=== PATIENT | female | born 1965 | race Caucasian/White ===

== ENCOUNTER → 2018-10-24 | Outpatient (CLI) | payer OTHER, SELFPAY ==
[2018-10-24 09:09] VITALS: BMI 21.4
[2018-10-24 17:26] LABS: HIV - WCH Non-Reactive (Nonreactive)
[2018-10-24 18:06] LABS: Chlamydia Trachomatis by PCR Negative (Negative); Neisserai gonorrhoeae by PCR Negative (Negative); Probe Check PASS; Sample Adequacy Control PASS; Specimen Processing Control PASS
[2018-10-26 01:35] LABS: Rapid Plasmin Reagin (RPR) NONREACTIVE (NONREACTIVE)
[2018-10-27 03:06] LABS: HCV Quant. RNA PCR HCV Not Detected IU/mL (.)
[2018-10-27 08:44] LABS: HSV 1 IgG < 0.91 index (0.00-0.90)
[2018-10-27 08:46] LABS: HPV APTIMA, High Risk Negative (Negative)
== END | disposition home or self-care (01) ==
LOC: LABSPEC 14:34 → LAB 14:35
PROVIDERS: Family Provider Internal Medicine; PCP Internal Medicine; Referring Provider Nurse Practitioner Women's Health; Visit Provider Nurse Practitioner Women's Health
DX: Z11.3 Encounter for screening for infections with a predominantly sexual mode of transmission (principal); Z12.4 Encounter for screening for malignant neoplasm of cervix
CPT/HCPCS: 36415; 86592; 86695; 86696; 86703; 87491; 87522; 87591; 87624; 88175; G0145

== ENCOUNTER → 2018-11-07 09:28 | Outpatient (CLI) | payer OTHER, SELFPAY ==
[2018-10-24 09:09] VITALS: BMI 21.4
--- NOTE | 2018-11-07 09:44 | EKG12_ITS ---
Test Reason : PRE-OP Blood Pressure : / mmHG Vent. Rate : 066 BPM Atrial Rate : 066 BPM P-R Int : 124 ms QRS Dur : 078 ms QT Int : 384 ms P-R-T Axes : 041 075 073 degrees QTc Int : 402 ms Normal sinus rhythm Normal ECG Confirmed by RADHA WILD ([id number]), food expeditor CATHY KLINE ([id number]) on 11/12/2018 3:08:37 PM Referred By: Keon Angeles Confirmed By:RADHA WILD
[2018-11-07 09:45] LABS: Hematocrit 43.6 % (37-47); Hemoglobin 14.3 g/dl (12.0-15.0); Mean Corp Hgb Conc 32.8 g/gl (32-36); Mean Corpuscular Hgb 29.8 pg (27.0-32.0); Mean Corpuscular Volume 90.8 fL (81-99); Platelet Count 225 K/mm3 (150-450); RBC Distribution Width CV 12.9 % (11.6-14.6); RBC Distribution Width SD 42.2 fl (35.1-43.9); White Blood Count 5.5 K/mm3 (4.4-11.0)
[2018-11-07 09:46] LABS: Scan Indicated on CBC? Y/N NO
[2018-11-07 10:05] LABS: Anion Gap 5 (5-15); BUN 16 mg/dL (7-18); BUN/Creat Ratio 16.5 RATIO (10-20); Calcium,Total 10.4 mg/dL (8.5-10.1); Chloride 111 mmol/L (98-107); Creatinine, Serum 0.97 mg/dL (0.55-1.02); EST Glomerular Filtration Rate 64 mL/min (>60); Est Glom Filt Rate - Afr Amer 77 mL/min (>60); Glucose 83 mg/dL (74-106); Potassium 4.1 mmol/L (3.5-5.1); Sodium Level 144 mmol/L (136-145)
== END ==
PROVIDERS: Family Provider Internal Medicine; PCP Internal Medicine; Referring Provider Physician Assistant; Visit Provider Physician Assistant
DX: Z01.818 Encounter for other preprocedural examination (principal); Z01.810 Encounter for preprocedural cardiovascular examination
CPT/HCPCS: 36415; 80048; 85027; 93005

== ENCOUNTER → 2018-11-13 13:54 | Outpatient (CLI) | payer OTHER, SELFPAY ==
[2018-10-24 09:09] VITALS: BMI 21.4
--- NOTE | 2018-11-13 13:56 | BI_ITS ---
MAMMOGRAPHY - BILATERAL SCREENING REASON FOR EXAM: Female, 53 years old. Routine annual screening examination. PERTINENT HISTORY: Aunt with breast cancer. TECHNIQUE: Digital bilateral breast su (3D mammographic acquisition) in the CC and MLO projections. 2-D mediolateral oblique (MLO) and craniocaudad (CC) views of both breasts were obtained. CAD: Full Field Digital Mammography with Computer Added Detection was performed. COMPARISON: Comparison is made with prior outside examination dated July 18, 2016. FINDINGS: Breast Composition: The breasts are extremely dense, which lowers the sensitivity of mammography. There are no dominant masses or suspicious calcifications. Stable small right axillary lymph nodes. No other significant abnormalities are identified. There has been no significant change since the prior study. BI/SCREEN MAMM (CAD) W/SU BILAT IMPRESSION: Stable bilateral screening mammogram. Yearly follow-up mammogram recommended. (A) ASSESSMENT CATEGORY: BIRADS Category 2: Benign. A letter regarding these results will be sent to the patient by the facility within 30 days. Approximately 10% of breast cancers are not detected by mammography. A normal mammogram should not delay biopsy of a clinically suspicious abnormality. [id number] Electronically Signed: Kota Montgomery, at 14:49 EDT , Service support ,
== END ==
PROVIDERS: Family Provider Internal Medicine; PCP Internal Medicine; Referring Provider Nurse Practitioner Women's Health; Visit Provider Nurse Practitioner Women's Health
DX: Z12.31 Encounter for screening mammogram for malignant neoplasm of breast (principal); Z80.3 Family history of malignant neoplasm of breast
CPT/HCPCS: 77063; 77067

== ENCOUNTER → 2019-03-22 10:30 | Outpatient (CLI) | payer OTHER, SELFPAY ==
[2018-10-24 09:09] VITALS: BMI 21.4
[2019-03-22 13:05] LABS: Absolute Lymphocyte Count 2.09 X10^3/uL (0.83-4.51); Absolute Neutrophil Count 4.4 X10^3/uL (2.0-7.7); Basophil# 0.06 X10^3/uL; Basophil% 0.8 % (0-1); Eosinophil# 0.08 X10^3/uL; Eosinophils% 1.1 % (0-5); Hematocrit 45.8 % (37-47); Hemoglobin 14.6 g/dL (12.0-15.0); Lymphocyte # 2.09 X10^3/ul (4.0); Lymphocyte % 29.4 % (19-41); Mean Corp Hgb Conc 31.9 g/dL (32-36); Monocyte# 0.45 X10^3/uL; Monocyte% 6.3 % (0-10); NRBC Flagged by Analyzer 0 % (0-5); Neutrophil # 4.41 X10^3/uL (2.7-7.7); Neutrophil % 62.3 % (47-70); Platelet Count 215 K/mm3 (150-450); RBC Distribution Width SD 41.7 fl (35.1-43.9); Red Blood Count 4.87 M/mm3 (4.2-5.4); White Blood Count 7.1 K/mm3 (4.4-11.0)
[2019-03-22 13:27] LABS: ALB/GLOB Ratio 1.1 RATIO (0.9-2.4); AST(SGOT) 21 U/L (15-37); Alanine Aminotransfer ALT/SGPT 27 U/L (13-56); Albumin, Serum 4.1 g/dL (3.2-5.0); Alkaline Phosphatase 160 U/L (45-117); Anion Gap 7 (5-15); BUN 20 mg/dL (7-18); BUN/Creat Ratio 22.3 RATIO (10-20); Calcium,Total 10.7 mg/dL (8.5-10.1); Chloride 108 mmol/L (98-107); EST Glomerular Filtration Rate 69 mL/min (>60); Est Glom Filt Rate - Afr Amer 84 mL/min (>60); Globulin 3.9 g/dL (2.2-4.2); Glucose 67 mg/dL (74-106); Potassium 4.2 mmol/L (3.5-5.1); Sodium Level 143 mmol/L (136-145)
[2019-03-22 14:09] LABS: Hepatitis C Antibody Non-Reactive (Nonreactive)
== END ==
PROVIDERS: Family Provider Internal Medicine; PCP Internal Medicine; Visit Provider Family Medicine Geriatric Medicine
DX: R53.83 Other fatigue (principal); Z13.89 Encounter for screening for other disorder
CPT/HCPCS: 36415; 80053; 84443; 85025; 86803

== ENCOUNTER → 2019-04-01 08:56 | Outpatient (CLI) | payer OTHER, SELFPAY ==
[2018-10-24 09:09] VITALS: BMI 21.4
--- NOTE | 2019-04-01 08:58 | US_ITS ---
STUDY: ABDOMINAL ULTRASOUND - RIGHT UPPER QUADRANT REASON FOR VISIT: Female, 53 years old. Abnormal labs TECHNIQUE: Ultrasound evaluation of the right upper quadrant was performed with real-time and static phillips-scale imaging. TECHNICAL QUALITY: Adequate. COMPARISON: None. FINDINGS: Liver: The liver measures 13 cm. There is normal echogenicity of the liver. The bile ducts are within normal limits. There is hepatic color flow. The direction of portal flow is hepatopetal. There is no demonstrated mass lesion. Gallbladder: Normal distended gallbladder. The gallbladder wall measures 2 mm. There is a negative sonographic Martin's sign. There is no pericholecystic fluid. There are no gallstones. Common Bile Duct (C.B.D.): The common bile duct measures 3 mm. Pancreas: Normal size of the head, body and tail of the pancreas. There is normal echogenicity of the pancreas. There is no demonstrated pancreatic mass or cyst. Right Kidney: Normal size of the right kidney. The right kidney measures 9 cm. Normal renal cortex. There is no demonstrated renal mass or cyst. There is no right hydronephrosis. US/Abdomen Limited IMPRESSION: Normal right upper quadrant ultrasound examination. Electronically Signed: Samuel Royal, at 17:55 EDT Tel , Service support ,
== END ==
PROVIDERS: Family Provider Family Medicine Geriatric Medicine; PCP Family Medicine Geriatric Medicine; Referring Provider Family Medicine Geriatric Medicine; Visit Provider Family Medicine Geriatric Medicine
DX: R74.8 Abnormal levels of other serum enzymes (principal)
CPT/HCPCS: 76705

== ENCOUNTER → 2019-04-30 16:55 | Outpatient (CLI) | payer OTHER, SELFPAY ==
[2019-04-30 16:04] VITALS: BMI 19.3
[2019-04-30 17:57] LABS: Anion Gap 8 (5-15); BUN 20 mg/dL (7-18); Calcium,Total 10.7 mg/dL (8.5-10.1); Chloride 106 mmol/L (98-107); Creatinine, Serum 0.95 mg/dL (0.55-1.02); EST Glomerular Filtration Rate 65 mL/min (>60); Est Glom Filt Rate - Afr Amer 78 mL/min (>60); Glucose 93 mg/dL (74-106); Potassium 4.1 mmol/L (3.5-5.1); Sodium Level 141 mmol/L (136-145)
[2019-04-30 17:58] LABS: Vitamin D,25 Hydroxy 29.4 ng/mL (29.95-100.01)
== END ==
PROVIDERS: Family Provider Internal Medicine; PCP Internal Medicine; Referring Provider Internal Medicine Endocrinology, Diabetes & Metabolism; Visit Provider Internal Medicine Endocrinology, Diabetes & Metabolism
DX: E83.52 Hypercalcemia (principal); E55.9 Vitamin D deficiency, unspecified
CPT/HCPCS: 36415; 80048; 82306

== ENCOUNTER → 2019-05-01 16:23 | Outpatient (CLI) | payer OTHER, SELFPAY ==
[2019-04-30 16:04] VITALS: BMI 19.3
== END ==
PROVIDERS: Family Provider Internal Medicine; PCP Internal Medicine; Referring Provider Internal Medicine Endocrinology, Diabetes & Metabolism; Visit Provider Internal Medicine Endocrinology, Diabetes & Metabolism
DX: E83.52 Hypercalcemia (principal)

== ENCOUNTER → 2019-05-09 13:28 | Outpatient (CLI) | payer OTHER, SELFPAY ==
[2019-05-03 09:32] VITALS: BMI 19.3
--- NOTE | 2019-05-09 13:32 | BD_ITS ---
STUDY: DUAL ENERGY X-RAY ABSORPTIOMETRY / DXA REASON FOR EXAM: Female, 53 years old. The patient is postmenopausal. No loss of height. TECHNIQUE: Bone Mineral Density (BMD) measurements of lumbar spine and bilateral hips were obtained. COMPARISON: None. FINDINGS: Lumbar Spine (L1-L4): g/cm2 (0.913) / T-score (-2.2) / Z-score (-1.4) Findings are suggestive of osteopenia with a high fracture risk. Left Femur Total: g/cm2 (0.736) / T-score (-2.2) / Z-score (-1.5) Left Femoral Neck: g/cm2 (0.773) / T-score (-1.9) / Z-score (-0.9) Right Femur Total: g/cm2 (0.649) / T-score (-2.8) / Z-score (-2.2) Right Femoral Neck: g/cm2 (0.692) / T-score (-2.5) / Z-score (-1.5) BD/Dexa Bone Density Study IMPRESSION: The patient is considered osteopenic as outlined below according to World [employer]z Organization (WHO) criteria with a high fracture risk. Reference Information: The T-score is the number of standard deviations above or below the standard which is normal for young adults at their peak bone mineral density. The World Health Organization (WHO) interprets the T-scores as follows: Above -1 Normal bone density Between -1 and -2.5 Osteopenia Equal to / or below -2.5 Osteoporosis As a practical clinical guideline, osteopenia may be graded as follows: Mild -1 through -1.5 Moderate -1.6 through -2.0 Severe -2.1 through -2.4 The Z-score is the number of standard deviations above or below age-matched controls. A Z-score of less than -1.5 would be considered abnormal. References: 1. NIH Osteoporosis and Related Bone Diseases http://www.osteo.org 2. International Society for Clinical Densitometry http://www.iscd.org 3. National Osteoporosis Foundation http://www.nof.org Electronically Signed: Kota Montgomery, at 15:50 EST , Service support ,
== END ==
PROVIDERS: Family Provider Internal Medicine; PCP Internal Medicine; Referring Provider Internal Medicine Endocrinology, Diabetes & Metabolism; Visit Provider Internal Medicine Endocrinology, Diabetes & Metabolism
DX: E21.0 Primary hyperparathyroidism (principal); Z78.0 Asymptomatic menopausal state
CPT/HCPCS: 77080

== ENCOUNTER → 2019-05-21 10:27 | Outpatient (CLI) | payer OTHER, SELFPAY ==
[2019-05-03 09:32] VITALS: BMI 19.3
--- NOTE | 2019-05-21 10:27 | NM_ITS ---
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 WHOLE BODY 99m Tc MDP RADIONUCLIDE BONE SCINTIGRAPHY COMPARISON: None available FINDINGS: Following the intravenous administration of 26.0 mCi of 99m Tc MDP, whole body bone images reveal: 1. Increased radiopharmaceutical concentration is identified in the right proximal humeral metaphysis-humeral head. 2. Enhanced tracer distribution is visualized in the acromioclavicular compartments of both shoulders, sternoclavicular compartment of the right shoulder, bilateral knees, right-left ankles, midfoot and forefoot bilaterally. 3. The remaining skeletal structures are scintigraphically unremarkable with normal-appearing renal images and urinary bladder activity identified. NM/Bone Scan Whole Body IMPRESSION: 1. The increase in radiopharmaceutical concentration identified in the right proximal humeral metaphysis-humeral head may represent previous trauma-fracture. Plain film radiography correlation is recommended. 2. Degenerative arthritis appears each breast in the bilateral shoulders, right and left knees, both ankle articulations, right-left mid and forefoot. 3. There is no definitive typical scintigraphic evidence of diffuse axial skeletal metastatic disease on the current examination. Electronically Signed: James Magdaleno DO at 11:24 EST Tel , Service support ,
== END ==
PROVIDERS: Family Provider Internal Medicine; PCP Internal Medicine; Referring Provider Internal Medicine Endocrinology, Diabetes & Metabolism; Visit Provider Internal Medicine Endocrinology, Diabetes & Metabolism
DX: E83.52 Hypercalcemia (principal)
CPT/HCPCS: 78306

== ENCOUNTER → 2019-06-03 09:05 | Outpatient (CLI) | payer OTHER, SELFPAY ==
[2019-05-03 09:32] VITALS: BMI 19.3
[2019-06-03 09:58] LABS: (24 HR) Urine Calcium 301.6 mg/24 HR (42.0-353.0); 24HR UR TOTAL VOLUME 1850 ml; Calcium Urine pH Range 2
[2019-06-03 10:07] LABS: Urine Calcium (Random) 16.3 (Not Estab.)
[2019-06-03 10:51] LABS: Calcium,Total 10.8 mg/dL (8.5-10.1)
[2019-06-03 11:28] LABS: PTHIN 124.2 pg/mL (18.4-80.1)
[2019-06-03 11:29] LABS: Vitamin D,25 Hydroxy 36.7 ng/mL (29.95-100.01)
== END ==
PROVIDERS: Family Provider Internal Medicine; PCP Internal Medicine; Referring Provider Internal Medicine Endocrinology, Diabetes & Metabolism; Visit Provider Internal Medicine Endocrinology, Diabetes & Metabolism
DX: E83.52 Hypercalcemia (principal)
CPT/HCPCS: 36415; 81050; 82306; 82310; 82340; 83970

== ENCOUNTER → 2020-03-23 17:49 | Outpatient (CLI) | payer OTHER, SELFPAY ==
[2019-05-03 09:32] VITALS: BMI 19.3
== END ==
PROVIDERS: PCP Internal Medicine
DX: R50.9 Fever, unspecified (principal); R53.83 Other fatigue
CPT/HCPCS: 87635; C9803; U0003

== ENCOUNTER 2022-03-20 09:13 | Emergency (ER) | payer OTHER, SELFPAY ==
[2022-03-20 09:14] VITALS: BP 136/68; BP 161/81; PULSE 71; RESP 16; RESP 18; TEMP 36.6; O2SAT 100; BMI 19.7
--- NOTE | 2022-03-20 09:28 | CT_ITS ---
STUDY: CT BRAIN WITHOUT CONTRAST REASON FOR EXAM: Female, 56 years old. Syncope, headache RADIATION DOSAGE (If Supplied By Facility): CTDIvol = ( 44.99 ) mGy, DLP = ( 812.98 ) mGycm TECHNIQUE: Transaxial CT imaging of the brain was performed without administration of intravenous contrast material. Individualized dose optimization techniques were used for this CT. COMPARISON: No relevant priors. FINDINGS: Normal soft tissue structures. Normal calvarium. Normal size ventricles and extra-axial spaces for the patient''s age. Normal white matter tracts of the cerebral hemispheres. Normal basal ganglia and thalami. Normal brainstem. Normal cerebellum. There is no intracranial hemorrhage. There are no findings of an acute ischemic infarction. Normal visualized paranasal sinuses. CT/Brain/Head without Contrast IMPRESSION: Normal unenhanced CT scan of the brain. Electronically Signed: Duarte Fernandez MD at 10:04 EDT ,
--- NOTE | 2022-03-20 09:28 | EKG12_ITS ---
Test Reason : SYNCOPE Blood Pressure : / mmHG Vent. Rate : 059 BPM Atrial Rate : 059 BPM P-R Int : 148 ms QRS Dur : 076 ms QT Int : 428 ms P-R-T Axes : 069 076 074 degrees QTc Int : 423 ms Sinus bradycardia Otherwise normal ECG Confirmed by ELSA HUNT, EUGENIA ([id number]), editorial director ALBER VALADEZ ([id number]) on 03/22/2022 1:00:05 PM Referred By: PEEWEE Confirmed By:EUGENIA HUNTER MD
--- NOTE | 2022-03-20 09:28 | EDS_ITS ---
HPI History of Present Illness Chief Complaint: Syncope Detail of Chief Complaint: Syncope Informant: patient and spouse/S.O. Narrative Narrative: Patient presents the emergency department with a syncopal episode that occurred this morning around 8:40 AM. Patient states she was standing in the kitchen and her significant other started to cast the left side of her neck and she felt a tingly sensation in the left side of her neck and then apparently she started to fall to the floor and her held onto her T-shirt and lowered her to the floor but she did slump and then strike her head on the tile floor. She was unresponsive for a few seconds and then she started coming to. He denies any seizure-like activity. Patient complains of a little bit of a headache where she bumped her head on the floor. She is never had this happen before. She denies recent illness. She denies chest pain or shortness of breath. Prior similar symptoms: No PFSH PFSH Medical History (Updated 03/20/22 @ 10:[address] Surinder Astudillo, ) Anxiety Elevated alkaline phosphatase level Elevated liver enzymes Fatigue H/O urinary tract infection Hypercalcemia Hyperglyceridemia Hypoglycemia Rash Vertigo Vitamin D deficiency Home Medications cyclosporine 0.05 % eye drops in a dropperette (Restasis) 1 drp ophthalmic (eye) Q12H 10/24/18 [History Last Taken Unknown] polypodium leucotomos extract 240 mg capsule (Heliocare) mg PO 10/24/18 [History Last Taken Unknown] calcium carbonate 500 mg calcium (1,250 mg) tablet (Calcium 500) 500 mg PO DAILY 12/18/20 [History Last Taken Unknown] cholecalciferol (vitamin D3) 50 mcg (2,000 unit) capsule 50 mcg PO DAILY 12/18/20 [History Last Taken Unknown] Allergy/AdvReac Type Severity Reaction Status Date / Time amoxicillin Allergy Hives Verified 03/20/22 09:16 sulfamethoxazole Allergy Rash Verified 03/20/22 09:16 [From Bactrim] trimethoprim [From Bactrim] Allergy Rash Verified 03/20/22 09:16 Family History Mother CVA (cerebral vascular accident) Alzheimer's dementia Grandmother Leukemia Surgical History (Updated 03/20/22 @ 09:33 by Yolie Katz) H/O oral surgery H/O parathyroidectomy Status post Mohs surgery for squamous cell carcinoma in situ of skin Social History Smoking Status: Never smoker alcohol intake: current alcohol intake frequency: a few times a month substance use type: does not use what type of physical activity do you participate in: walking seatbelt use: always do you feel safe at home: Yes additional social history: ml SERRATO ROS ED ROS Narrative Syncope Review of Systems ROS Unobtainable: other Constitutional Constitutional ED: Reports lethargy; Denies chills, fever(s), sweats or weight loss Eyes Eyes: Denies blurry vision, change in vision or diplopia ENT ENT ED: Denies rhinorrhea or sore throat Cardiovascular Cardiovascular: Denies chest pain, orthopnea or racing heartbeat Respiratory/Chest Respiratory/Chest: Reports dyspnea and dyspnea on exertion; Denies cough, orthopnea or sputum Gastrointestinal Gastrointestinal: Denies abdominal pain, diarrhea, nausea or vomiting Genitourinary Genitourinary ED: Denies dysuria, hematuria or urinary frequency Musculoskeletal Musculoskeletal: Denies arthralgias, back pain, myalgias or neck pain Integumentary Denies abscess, Abrasions or rash Neurologic Neurologic: Reports headache(s); Denies weakness Psychiatric Psychiatric: Denies anxiety, depression or suicidal thoughts Endocrine Endocrinology: Denies polydipsia, polyphagia or polyuria Hematologic/Lymphatic Hematologic/Lymphatic: Denies easy bleeding, easy bruising or lymphadenopathy Allergic/Immunologic Allergic/Immunologic ED: Denies mouth swelling, tongue swelling or urticaria EXAM Physical Exam Const Vital Signs: 03/20/22 09:14 03/20/22 09:14 03/20/22 09:31 Temperature 97.9 F Temperature Source Temporal Pulse Rate 71 71 Pulse Rate [Lying] Pulse Rate [Sitting (for 1 minute prior to obtaining)] Pulse Rate [Standing (for 1 minute prior to obtaining)] Respiratory Rate 16 18 Respiratory Effort Normal Non-Labored Respiratory Pattern Normal Blood Pressure 136/68 H 161/81 H Blood Pressure [Lying] Blood Pressure [Sitting (for 1 minute prior to obtaining)] Blood Pressure [Standing (for 1 minute prior to obtaining)] Blood Pressure Mean 90 107 Blood Pressure Mean [Lying] Blood Pressure Mean [Sitting (for 1 minute prior to obtaining)] Blood Pressure Mean [Standing (for 1 minute prior to obtaining)] Pulse Ox 100 100 Oxygen Delivery Method Room Air Room Air 03/20/22 09:35 Temperature Temperature Source Pulse Rate Pulse Rate [Lying] 60 Pulse Rate [Sitting (for 1 minute prior to obtaining)] 65 Pulse Rate [Standing (for 1 minute prior to obtaining)] 75 Respiratory Rate Respiratory Effort Respiratory Pattern Blood Pressure Blood Pressure [Lying] 135/80 H Blood Pressure [Sitting (for 1 minute prior to obtaining)] 131/71 H Blood Pressure [Standing (for 1 minute prior to obtaining)] 111/78 Blood Pressure Mean Blood Pressure Mean [Lying] 98 Blood Pressure Mean [Sitting (for 1 minute prior to obtaining)] 91 Blood Pressure Mean [Standing (for 1 minute prior to obtaining)] 89 Pulse Ox Oxygen Delivery Method Positive well nourished and well developed General Appearance ED: well developed and NAD HEENT Reports TM's clear and moist mucous membranes HEENT Narrative: Patient has small hematoma right posterior occiput but is slightly tender to palpation. No bony step-offs noted. normocephalic and trauma; Negative for atraumatic or tenderness Tympanic Membrane ED: Yes TM's clear Eyes PERRL and EOMs intact bilaterally General Eye ED: Negative for pale conjunctiva or scleral icterus Neck no lymphadenopathy, supple and no JVD General: Negative for tenderness Chest Wall inspection of chest normal and palpation of chest normal Chest: Negative for tenderness Resp normal respiratory effort and clear to auscultation bilaterally Effort and Inspection: Negative for respiratory distress or pain with movement Auscultation: Negative for rhonchi, wheezes or diminished lung sounds Cardio regular rate, regular rhythm, S1 normal heart sound, S2 normal heart sound and no murmurs Peripheral Pulses: pulses 2+ throughout GI normal to inspection, nondistended, normoactive bowel sounds, soft to palpation, non-tender, non-distended and no masses Back/Spine no CVA tenderness and no thoracic nor lumbar tenderness Extremity normal to inspection General Extremety ED: Negative for edema General Extremity: Negative for edema Neuro oriented x3, CN's II-XII intact bilaterally, no sensory deficits noted and gait normal Sensorium / Orientation: awake, alert, oriented to person, oriented to place and oriented to time Motor Exam: strength 5/5 throughout and strength abnormal Psych mental status grossly normal Skin no rashes or lesions noted and no wounds MDM MDM MDM Narrative Medical decision making narrative: IV established on arrival. Patient placed on a monitor and storage bin tender. EKG obtained showed a sinus rhythm with a rate of 59 bpm with no acute ST segment changes. Chemistries and lab work otherwise unremarkable. Troponin was less than 3. Orthostatic vital signs performed were negative. At this point patient is asymptomatic and feels well. Suspect likely patient had a vasovagal type syncope. Patient advised to follow-up with primary care physician within next 5 to 7 days. She is to return if frequent or persistent syncope, chest pain, tachycardia or palpitations, or condition worsen anyway. Lab Data Attestation: I reviewed the patient's lab results. Labs: Laboratory Results - last 24 hr 03/20/22 03/20/22 09:28 09:28 WBC 5.5 RBC 4.66 Hgb 14.1 Hct 42.7 MCV 91.6 MCH 30.3 MCHC 33.0 RDW Std Deviation 41.5 RDW Coeff of Sammie 12.4 Plt Count 213 MPV 10.8 Immature Gran % (Auto) 0.200 Neut % (Auto) 49.8 Lymph % (Auto) 40.5 [place] % (Auto) 7.7 Eos % (Auto) 1.3 Baso % (Auto) 0.5 Absolute Neuts (auto) 2.7 Absolute Lymphs (auto) 2.22 Nucleated RBC % 0 Sodium 144 Potassium 4.0 Chloride 108 H Carbon Dioxide 28.0 Anion Gap 8 BUN 17 Creatinine 0.90 Estim Creat Clear Calc 59.52 Est GFR (MDRD) Af Amer 82 Est GFR (MDRD) Non-Af 68 BUN/Creatinine Ratio 18.8 Glucose 90 Calcium 9.9 Troponin I High Sens < 3 L Radiography Diagnostic Testing: Clinical Impression(s) from Imaging Studies Brain CT 03/20/22 09:28 IMPRESSION: Normal unenhanced CT scan of the brain. Electronically Signed: Duarte Fernandez MD at 10:04 EDT , EKG Initial EKG: Attestation: I personally reviewed and interpreted this EKG as follows: Comments: Sinus rhythm with a ventricular rate of 59 bpm with no acute ST segment changes Discharge Plan Triage Chief Complaint: Syncope ED Provider: Surinder Astudillo Dx/Rx/DC Orders Clinical Impression: Syncope Instructions: ED Fainting, Vagal Reaction, ED Fainting, Uncertain Cause Prescriptions: No Action Restasis 0.05 % dropperette 1 drp OPHTHALMIC Q12H polypodium leucotomos extract 240 mg capsule 240 mg capsule PO calcium carbonate [Calcium 500] 500 mg calcium (1,250 mg) tablet 500 mg PO DAILY cholecalciferol (vitamin D3) 50 mcg (2,000 unit) capsule 50 mcg PO DAILY Primary Care Provider: Raquel Coley Referrals: Raquel Coley DO [Primary Care Provider] - 5-7 Days Disposition Disposition: Home, Self Care
[2022-03-20 09:35] VITALS: BP 111/78; BP 131/71; BP 135/80; PULSE 60; PULSE 65; PULSE 75
[2022-03-20 09:42] LABS: Absolute Lymphocyte Count 2.22 X10^3/uL (0.83-4.51); Absolute Neutrophil Count 2.7 X10^3/uL (2.0-7.7); Basophil# 0.03 X10^3/uL; Basophil% 0.5 % (0-1); Eosinophil# 0.07 X10^3/uL; Eosinophils% 1.3 % (0-5); Hematocrit 42.7 % (37-47); Hemoglobin 14.1 g/dL (12.0-15.0); Lymphocyte # 2.22 X10^3/ul (0.83-4.51); Lymphocyte % 40.5 % (19-41); Mean Corpuscular Hgb 30.3 pg (27.0-32.0); Mean Corpuscular Volume 91.6 fL (81-99); Mean Platelet Vol. 10.8 fl (6.2-12.0); Monocyte# 0.42 X10^3/uL; Monocyte% 7.7 % (0-10); NRBC Flagged by Analyzer 0 % (0-5); Neutrophil # 2.73 X10^3/uL (2.7-7.7); Neutrophil % 49.8 % (47-70); Platelet Count 213 K/mm3 (150-450); RBC Distribution Width CV 12.4 % (11.6-14.6); RBC Distribution Width SD 41.5 fl (35.1-43.9); Red Blood Count 4.66 M/mm3 (4.2-5.4); White Blood Count 5.5 K/mm3 (4.4-11.0)
[2022-03-20 10:01] LABS: Anion Gap 8 (5-15); BUN 17 mg/dL (7-18); BUN/Creat Ratio 18.8 RATIO (10-20); Calcium,Total 9.9 mg/dL (8.5-10.1); Chloride 108 mmol/L (98-107); EST Glomerular Filtration Rate 68 mL/min (>60); Est Glom Filt Rate - Afr Amer 82 mL/min (>60); Estimated Creatinine Clearance 59.52 ml/min; Glucose 90 mg/dL (74-106); Sodium Level 144 mmol/L (136-145); Troponin-I HS < 3 pg/mL (3.0-54.0)
[2022-03-20 10:14] VITALS: BP 118/79; PULSE 61; RESP 18; O2SAT 99
[2022-03-20] MEDS: 0.9% Normal Saline 1,000 ML 150 ML IV (10:45)
== END 2022-03-20 10:47 | disposition home or self-care (01) ==
PROVIDERS: Emergency Provider Emergency Medicine; PCP Internal Medicine; Visit Provider Emergency Medicine
DX: R55 Syncope and collapse (principal)
CPT/HCPCS: 70450; 80048; 84484; 85025; 93005; 99285

== ENCOUNTER → 2022-04-18 | Outpatient (CLI) | payer OTHER, SELFPAY | END | disposition home or self-care (01) | PROVIDERS: PCP Internal Medicine; Visit Provider Internal Medicine | DX: R05.9 Cough, unspecified (principal) | CPT/HCPCS: 87070; 87186; 87205 ==

== ENCOUNTER → 2022-04-25 | Outpatient (CLI) | payer OTHER, SELFPAY ==
[2022-04-25 10:29] LABS: Color, Urine Yellow (Yellow); Glucose, Dipstick Normal (Normal); Ketone-Dipstick Negative (Negative); Leukocyte Esterase-Dipstick 25 /ul (Negative); Nitrite-Dipstick Negative (Negative); Occult Blood-Urine 10 /ul (Negative); Protein-Dipstick Negative (Negative); Specific Gravity, Urine 1.005 (1.002-1.030); Urine Bilirubin Dipstick Negative (Negative); Urine Clarity Clear (Clear); Urine Urobilinogen Normal (Normal)
[2022-04-25 10:56] LABS: Vitamin D,25 Hydroxy 64.9 ng/mL
[2022-04-25 11:04] LABS: Cholesterol 208 mg/dL (200); High Density Lipoprotein 70 mg/dL; Triglycerides 82 mg/dL; Very Low Density Lipoprotein 16 mg/dL (5-40)
== END | disposition home or self-care (01) ==
PROVIDERS: PCP Internal Medicine; Referring Provider Internal Medicine; Visit Provider Internal Medicine
DX: R31.29 Other microscopic hematuria (principal); E78.1 Pure hyperglyceridemia; R05.9 Cough, unspecified; E55.9 Vitamin D deficiency, unspecified
CPT/HCPCS: 36415; 80061; 81002; 82306

== ENCOUNTER → 2022-05-02 | Outpatient (CLI) | payer OTHER, SELFPAY ==
--- NOTE | 2022-05-02 12:22 | US_ITS ---
STUDY: RENAL ULTRASOUND - COMPLETE REASON FOR EXAM: Female, 56 years old. UTI HEMATURIA TECHNIQUE: Ultrasound evaluation of the kidneys was performed with real-time and static monahan-scale imaging. COMPARISON: None. FINDINGS: RIGHT KIDNEY: Normal location of the right kidney, which is normal in size. The right kidney measures 9.5x4.7 cm. There is a normal cortex of the right kidney. The renal cortex measures 1.1 cm. There is no right renal mass or cyst. There are no right renal calculi. There is no right hydronephrosis. DISTAL RIGHT URETER: There is non-visualization of the distal right ureter. There is no demonstrated right ureterovesical junction calculus. There is a visualized right ureteral jet. LEFT KIDNEY: Normal location of the left kidney, which is normal in size. The left kidney measures 8.6x4.8 cm. There is a normal cortex of the left kidney. The renal cortex measures 1.2 cm. There is no left renal mass or cyst. There are no left renal calculi. There is no left hydronephrosis. DISTAL LEFT URETER: There is non-visualization of the distal left ureter. There is no demonstrated left ureterovesical junction calculus. There is a visualized left ureteral jet. AORTA: There is obscuration of the abdominal aorta by overlying bowel gas I.V.C.: The IVC is obscured. BLADDER: The distended urinary bladder has a volume of 345 ml. There is a normal wall thickness of the distended urinary bladder. There is no demonstrated mass within the urinary bladder. There are no demonstrated bladder calculi. US/Kidney and Bladder IMPRESSION: Normal ultrasound of the kidneys and urinary bladder. Electronically Signed: Larry Eric MD at 16:58 EST ,
== END | disposition home or self-care (01) ==
LOC: US 12:20
PROVIDERS: PCP Internal Medicine; Referring Provider Urology; Visit Provider Urology
DX: N39.0 Urinary tract infection, site not specified (principal); R31.9 Hematuria, unspecified
CPT/HCPCS: 76770

== ENCOUNTER → 2022-05-05 | Outpatient (CLI) | payer OTHER, SELFPAY ==
--- NOTE | 2022-05-05 15:58 | BI_ITS ---
MAMMOGRAPHY - BILATERAL SCREENING REASON FOR EXAM: Female, 56 years old. Routine annual screening examination. PERTINENT HISTORY: Aunt with breast cancer. TECHNIQUE: Digital bilateral breast su (3D mammographic acquisition) in the CC and MLO projections. 2-D mediolateral oblique (MLO) and craniocaudad (CC) views of both breasts were obtained. CAD: Full Field Digital Mammography with Computer Added Detection was performed. COMPARISON: Comparison is made with prior study of 11/13/2018. FINDINGS: Breast Composition: The breasts are extremely dense, which lowers the sensitivity of mammography. There are no dominant masses or suspicious calcifications. No other significant abnormalities are identified. There has been no significant change since the prior study. BI/SCRN MAMM (CAD)W/SU BILAT IMPRESSION: Stable bilateral screening mammogram. Yearly follow-up mammogram recommended. (A) ASSESSMENT CATEGORY: BIRADS Category 1: Negative. A letter regarding these results will be sent to the patient by the facility within 30 days. Approximately 10% of breast cancers are not detected by mammography. A normal mammogram should not delay biopsy of a clinically suspicious abnormality. [id number] Electronically Signed: Kota Montgomery MD at 8:25 EST ,
--- NOTE | 2022-05-05 15:59 | BD_ITS ---
STUDY: DUAL ENERGY X-RAY ABSORPTIOMETRY / DXA REASON FOR EXAM: Female, 56 years old. [id number] TECHNIQUE: Bone Mineral Density (BMD) measurements of lumbar spine and bilateral hips were obtained. COMPARISON: Comparison is made with prior study 05/09/2019. FINDINGS: Lumbar Spine (L1-L4): g/cm2 (0.790) / T-score (-2.3) / Z-score (-1.0) Findings are suggestive of osteopenia with a high fracture risk. Left Femur Total: g/cm2 (0.755) / T-score (-1.5) / Z-score (-0.7) Left Femoral Neck: g/cm2 (0.613) / T-score (-2.1) / Z-score (-0.9) Right Femur Total: g/cm2 (0.688) / T-score (-2.1) / Z-score (-1.2) Right Femoral Neck: g/cm2 (0.539) / T-score (-2.8) / Z-score (-1.6) The T-Scores on the most recent prior examination were: Lumbar Spine (L1-L4): There has been worsening of bone density since the previous examination. Left Femur Total: which represents an improvement of 11.4%. Right Femur Total: which represents an improvement of 15.9%. BD/Dexa Bone Density Study IMPRESSION: The patient is considered osteoporotic as outlined below according to World [employer] Organization (WHO) criteria with a high fracture risk. There has been improvement of bone density since the previous examination. Reference Information: The T-score is the number of standard deviations above or below the standard which is normal for young adults at their peak bone mineral density. The World Health Organization (WHO) interprets the T-scores as follows: Above -1 Normal bone density Between -1 and -2.5 Osteopenia Equal to / or below -2.5 Osteoporosis As a practical clinical guideline, osteopenia may be graded as follows: Mild -1 through -1.5 Moderate -1.6 through -2.0 Severe -2.1 through -2.4 The Z-score is the number of standard deviations above or below age-matched controls. A Z-score of less than -1.5 would be considered abnormal. References: 1. NIH Osteoporosis and Related Bone Diseases www osteo.org 2. International Society for Clinical Densitometry www iscd.org 3. National Osteoporosis Foundation www nof.org Electronically Signed: Kota Montgomery MD at 15:21 EST ,
== END | disposition home or self-care (01) ==
LOC: OPBD 15:56
PROVIDERS: PCP Internal Medicine; Referring Provider Internal Medicine; Visit Provider Internal Medicine
DX: Z12.31 Encounter for screening mammogram for malignant neoplasm of breast (principal); M81.0 Age-related osteoporosis without current pathological fracture; Z80.3 Family history of malignant neoplasm of breast
CPT/HCPCS: 77063; 77067; 77080

== ENCOUNTER → 2022-06-16 | Outpatient (CLI) | payer OTHER, SELFPAY ==
[2022-06-16 12:48] LABS: Calcium,Total 9.2 mg/dL (8.5-10.1); Free T3 2.7 pg/mL (2.18-3.98); T4 Free Direct 0.93 ng/dL (0.76-1.46); Thyroid Stim Hormone (TSH) 3.68 uIU/mL (0.358-3.74)
[2022-06-17 11:04] LABS: Thyroid Peroxidase AB 11 IU/mL (0-34)
== END | disposition home or self-care (01) ==
LOC: LAB 11:11
PROVIDERS: PCP Internal Medicine; Referring Provider Internal Medicine; Visit Provider Internal Medicine
DX: E83.52 Hypercalcemia (principal); R79.89 Other specified abnormal findings of blood chemistry
CPT/HCPCS: 36415; 82310; 84439; 84443; 84481; 86376

== ENCOUNTER 2022-07-26 09:00 | Outpatient (RCR) | payer OTHER, SELFPAY ==
--- NOTE | 2022-05-31 13:50 | HP.PTEVAL ---
Patient's Visit Information DEANDRE ARMENTA is a 56 year old F referred to Physical Therapy by Dr. Mya Elias MD with a diagnosis of DYSPAREUNIA, HIGH TONE PELVIC FLOOR AND OSTEOPOROSIS.. Date of Evaluation: 05/30/22 Physical Therapist: Tamiko Ching, PT, Cert MDT - Visit Plan Frequency: 1x/Week Duration: 8-10 WKS Plan: INSTRUCTION IN HEP FOR OSTEOPOROSIS. MANUAL PF STM. MANUAL PF THERAPY FOR STRENGTHENING, LENGTHENING/RELAXATION AND ENDURANCE TRAINING. TRAINING IN COORDINATION OF PELVIC FLOOR MUSCULATURE WITH HIP AND CORE (TRANSVERSE ABDOMINUS) MUSCULATURE. POSTURE CORRECTION/STRENGTHENING. CORE STRENGTHENING. JEROME LE ROM, STRETCHING AND STRENGTHENING. 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 SOMETIMES A LOT OF SITTING AND SOMETIMES A LOT OF STANDING. Present symptoms: PATIENT REPORTS SHE IS HERE BECAUSE SHE HAS BEEN DEALING WITH SOME PAIN WITH INTERCOURSE FOR QUITE SOME TIME AND UPON EXAM WITH DR. ELIAS SHE HAS PELVIC TIGHTNESS. PAIN WITH INTERCOUSE IS USUALLY UPON penetration BUT OTHERWISE USUALLY COMFORTABLE. NO PELVIC PAIN OTHERWISE. SOMETIMES GETS URGE INCONTINENCE BUT NO LEAKING. DENIES LEAKING WITH COUGHING AND SNEEZING. Present since: YEARS. Pain Scale: WORST 7/10, LEAST 0/10. Currently: 0/10. Is it getting better, worse or staying the same: STAYING THE SAME. Commenced as a result of: NO APPARENT REASON BUT DID HAVE UTI END OF FEB 2022. 05/23/[address] ELIAS WAS NEGATIVE. Treatment this episode: PATIENT REPORTS SHE IS USING D-MANNOSE TO PREVENT UTI, VITAMIN C, A PROBIOTIC. ALSO USING ESTRODIAL CREAM 3 TIMES A WEEK. Bowel Dysfunction: NO. Imaging: RECENT TESTING: PATIENT REPORTS THAT BLADDER AND KIDNEY US'S WERE NORMAL AND CYSTOSCOPY WAS NORMAL. PMH/Recent major surgery: OSTEOPOROSIS. SCOLIOSIS. H/O INTERMITTENT LBP. JUN 2019 PARATHYROIDECTOMY. OTHER: PATIENT REPORTS SHE RECENTLY RECEIVED A PT ORDER FROM HER PCP DR. MASCORRO FOR NEWLY DIAGNOSED OSTEOPOROSIS. H/O L SHD SX FOR FROZEN SHLD OCTOBER [address] CRESPO INCLUDING SUBACROMIAL DECOMPRSSION. CURRENTLY HAS R SHLD FROZEN SHLD. SHE REPORTS JUN 08 2022 SHE HAS AN CHARLES'T WITH [facility] IN [place] FOR OSTEOPOROSIS. PATIENT STATES SHE WOULD LIKE TO HAVE PT EVAL FOR HER PELVIC FLOOR AND OSTEOPOROSIS (REFERRAL FROM PCP) TODAY. - Objective Sitting/Standing Posture: POOR. FH. RSH'S. REDUCED LUMBAR LORDOSIS. SCOLIOSIS. Active Correction of posture: NE. Other Observations: INDEP GAIT AND TRANSFERS. Sensory deficit: JEROME UE AND LE LIGHT TOUCH SENSATON IS GROSSLY INTACT AND SYMMETRICAL. ROM deficit: TIGHT JEROME HIP IR/ER, ADDUCTION, HS'S AND GASTROC SOLEUS COMPLEX'S. Motor deficit: JEROME UE AND LE STRENGTH GOSSLY 4-5/5 WITH MMT'ING. Dural Signs: NEGATIVE JEROME LE'S. Lumbar mvmt loss: flex - MIN. ext - MOD. R SG - MIN. L SG - MIN. Core strength: POOR. Palpation: NO ACUTE LUMBAR, HIP OR PELVIC TENDERNESS EXTERNALLY. INTERNAL VAGINAL EXAM REVEALS VERY TIGHT PELVIC FLOOR SOFT TISSURE AND TENDERNESS ONLY AT THE introitus/VAGINAL vestibule. PATIENT HAS MULTIPLE PF TRIGGER POINTS IN ALL 3 LAYERS. PF STRENGTH IS GRADED 4/5 WITH 5 SEC ENDURANCE X 4 REPS BEFORE DECLINE. FUNCTIONAL SCREEN: Incontinence Impact Questionnaire Score: 0. Urogenital Distress Inventory Score: 0. OTHER: PATIENT TOLERATED EXAM WELL WITHOUT ANY LASTING INCREASED PAIN. - Goals Goal 1:: DECREASE PELVIC FLOOR TIGHTNESS, TONE AND TRIGGER POINTS. Goal Time Frame: 6-8 Weeks Goal 2:: PATIENT WILL BE ABLE TO HAVE SEXUAL RELATIONS WITH HER WITHOUT PAIN. Goal 3:: INCREASE JEROME LE flexibility. Goal Time Frame: 4-6 Weeks Goal 4:: PATIENT WILL HAVE INCREASED PELVIC FLOOR MUSCLE STRENGTH GRADE TO 5/5 Goal Time Frame: 6-8 Weeks Goal 5:: PATIENT WILL DEMONSTRATE 10 CONSISTENT AND CONSECUTIVE 10 SECOND PELVIC FLOOR MUSCLE CONTRACTIONS TO DEMONSTRATE IMPROVED PELVIC FLOOR ENDURANCE. Goal Time Frame: 8-12 Weeks Goal 6:: PATIENT WILL BE INDEP WITH A HEP/HOME INSTRUCTIONS FOR CONTINUED IMPROVEMENT ONCE FORMAL PHYSICAL THERAPY CONCLUDES. Goal Time Frame: 8-12 Weeks - Anticipated Interventions Patient/Client Instruction: Educate patient on: Condition, Plan of Care, Risk Factors For the Purpose of:: To facilitate caregiver knowledge Therapeutic Exercise to Include: Strength training, Endurance training, Postural training, Flexibilty training, Relaxation training For the Purpose of:: To decrease pain, To improve nutrient delivery to tissue, To improve muscle performance and motor function, To increase tolerance to activity/condition/position, To improve ability of physical actions for home/community/work/leisure Manual Therapy Techniques to Include: Soft tissue mobilization For the Purpose of:: To decrease pain, To increase ROM Thank you for the opportunity to evaluate your patient. For Medicare and Medicare HMO plans, please review the plan of care and approve it. It will need to be FAXED BACK to us at [phone] for Medicare purposes. For Medicare only, by signing this I certify the plan of care. Please let me know if there are questions or concerns regarding this plan of care. Physician Signature: Date:
--- NOTE | 2022-07-26 10:06 | HP.PTDCSUM ---
It has been my pleasure to treat DEANDRE ARMENTA referred by Dr. Mya Elias MD, with the diagnosis of DYSPAREUNIA, HIGH TONE PELVIC FLOOR AND OSTEOPOROSIS. for a total of 9 visit(s). Discharge Date: Please see the following information for a summary of their discharge status. Subjective: PATIENT REPORTS SHE HAS STARTED TO DO SELF PF TRIGGER POINT RELEASE AT HOME AND IS ABLE TO HAVE PAINFREE INTERCOURSE NOW. PATIENT STATES SHE FEELS LIKE SHE IS DOING GOOD. SHE REPORTS SHE IS STILL TRYING TO CARVE OUT TIME TO DO THE EX'S. % Improvement: 95 Objective/Function: ALL GOALS MET Goal 1:: DECREASE PELVIC FLOOR TIGHTNESS, TONE AND TRIGGER POINTS. Goal Progress: Goal Met Goal 2:: PATIENT WILL BE ABLE TO HAVE SEXUAL RELATIONS WITH HER WITHOUT PAIN. Goal Progress: Goal Met Goal 3:: INCREASE JEROME LE flexibility. Goal Progress: Goal Met Goal 4:: PATIENT WILL HAVE INCREASED PELVIC FLOOR MUSCLE STRENGTH GRADE TO 5/5 Goal Progress: Goal Met Goal 5:: PATIENT WILL DEMONSTRATE 10 CONSISTENT AND CONSECUTIVE 10 SECOND PELVIC FLOOR MUSCLE CONTRACTIONS TO DEMONSTRATE IMPROVED PELVIC FLOOR ENDURANCE. Goal 6:: PATIENT WILL BE INDEP WITH A HEP/HOME INSTRUCTIONS FOR CONTINUED IMPROVEMENT ONCE FORMAL PHYSICAL THERAPY CONCLUDES. Goal Progress: Goal Met Plan: D/C TO INDEP EX AND SELF PELVIC FLOOR TRIGGER POINT RELEASE. PATIENT AGREEABLE. If there are questions or concerns regarding this patient's physical therapy, please feel free to call me at [phone]. Thank you for the referral of this patient. Sincerely, Tamiko Ching PT, Cert MDT
== END 2022-07-26 10:15 | disposition home or self-care (01) ==
LOC: PT 09:00
PROVIDERS: PCP Internal Medicine; Referring Provider Urology; Visit Provider Urology
DX: M81.0 Age-related osteoporosis without current pathological fracture (principal); M99.05 Segmental and somatic dysfunction of pelvic region; N94.10 Unspecified dyspareunia
CPT/HCPCS: 97140; 97162; 97530

== ENCOUNTER → 2024-05-17 | Outpatient (CLI) | payer OTHER, SELFPAY ==
[2024-05-17 10:29] LABS: Absolute Lymphocyte Count 1.75 X10^3/uL (0.83-4.51); Absolute Neutrophil Count 4.3 X10^3/uL (2.0-7.7); Basophil# 0.04 X10^3/uL; Basophil% 0.6 % (0-1); Eosinophil# 0.11 X10^3/uL; Eosinophils% 1.7 % (0-5); Hematocrit 42.3 % (37-47); Hemoglobin 13.7 g/dL (12.0-15.0); Lymphocyte # 1.75 X10^3/ul (0.83-4.51); Lymphocyte % 26.6 % (19-41); Mean Corp Hgb Conc 32.4 g/dL (32-36); Mean Corpuscular Volume 92.6 fL (81-99); Mean Platelet Vol. 10.5 fl (6.2-12.0); Monocyte# 0.39 X10^3/uL; Monocyte% 5.9 % (0-10); NRBC Flagged by Analyzer 0 % (0-5); Neutrophil # 4.27 X10^3/uL (2.7-7.7); Neutrophil % 64.9 % (47-70); Platelet Count 223 K/mm3 (150-450); RBC Distribution Width CV 12.4 % (11.6-14.6); RBC Distribution Width SD 41.6 fl (35.1-43.9); Red Blood Count 4.57 M/mm3 (4.2-5.4); White Blood Count 6.6 K/mm3 (4.4-11.0)
[2024-05-17 10:52] LABS: Erythrocyte Sedimentation Rate 5 mm/hr (0-30)
[2024-05-17 10:55] LABS: PTHIN 70.9 pg/mL (18.4-80.1)
[2024-05-17 11:00] LABS: Vitamin B12 521 pg/mL (211-911); Vitamin D,25 Hydroxy 75.7 ng/mL
[2024-05-17 11:13] LABS: ALB/GLOB Ratio 1.2 RATIO (0.9-2.4); AST(SGOT) 25 U/L (15-37); Alanine Aminotransfer ALT/SGPT 22 U/L (13-56); Alkaline Phosphatase 85 U/L (45-117); Anion Gap 4 (5-15); BUN 21 mg/dL (7-18); BUN/Creat Ratio 23.2 RATIO (10-20); CRP < 2.90 mg/L (0.0-3.0); Calcium,Total 9.2 mg/dL (8.5-10.1); Chloride 108 mmol/L (98-107); Creatinine, Serum 0.91 mg/dL (0.55-1.02); EST Glomerular Filtration Rate 67 mL/min (>60); Est Glom Filt Rate - Afr Amer 81 mL/min (>60); Estradiol 18.3 pg/mL; Ferritin 59 ng/mL (8-252); Free T3 2.5 pg/mL (2.18-3.98); Globulin 3.3 g/dL (2.2-4.2); Glucose 80 mg/dL (74-106); Iron 95 ug/dL (50-170); Potassium 4.1 mmol/L (3.5-5.1); Protein, Total 7.3 g/dL (6.4-8.2); Rheumatoid Factor < 10.0 IU/mL (<15); Sodium Level 138 mmol/L (136-145); T4 Free Direct 0.88 ng/dL (0.76-1.46)
[2024-05-20 11:08] LABS: ANTINUCLEAR ANTIBODIES DIRECT Negative (Negative); HOMOCYSTEINE 9.2 umol/L (0.0-14.5); PROGESTERONE 0.1 ng/mL (.)
[2024-05-20 15:07] LABS: DHEA Sulfate 71.1 ug/dL (29.4-220.5)
== END | disposition home or self-care (01) ==
PROVIDERS: PCP Internal Medicine; Referring Provider Internal Medicine; Visit Provider Internal Medicine
DX: R53.83 Other fatigue (principal); E55.9 Vitamin D deficiency, unspecified; L65.9 Nonscarring hair loss, unspecified; E21.0 Primary hyperparathyroidism
CPT/HCPCS: 36415; 80053; 82306; 82607; 82627; 82670; 82728; 82746; 83090; 83540; 83970; 84144; 84403; 84439; 84443; 84481; 84630; 85025; 85652; 86038; 86140; 86431; 82626

== ENCOUNTER → 2024-05-24 | Outpatient (CLI) | payer OTHER, SELFPAY ==
--- NOTE | 2024-05-24 12:50 | US_ITS ---
STUDY: THYROID ULTRASOUND REASON FOR EXAM: Female, 58 years old. THYROID ULTRASOUND -- Thyroid cyst TECHNIQUE: Ultrasound evaluation of the thyroid was performed with real-time and static phillips-scale imaging. COMPARISON: None. FINDINGS: RIGHT LOBE: The right lobe of the thyroid gland measures 3.1 x 1.1 x 0.9 cm. There is a simple circumscribed mixed echogenicity nodule in the medial aspect of the inferior pole on the right is compatible with benign adenoma.. There are no demonstrated solid, cystic or complex lesions. Small lymph node noted at periphery and inferior pole of the thyroid gland without suspicious features. LEFT LOBE: The left lobe of the thyroid gland measures 2.6 x 1.0 x 0.7 cm. There is a heterogeneous echotexture. There are no demonstrated solid, cystic or complex lesions. ISTHMUS: The isthmus measures . Coarsened echotexture of the thyroid parenchyma. No mass or malignant process is seen. Suspect sequela of chronic thyroiditis. US/Thyroid IMPRESSION: 1. Coarsened echotexture of the thyroid parenchyma. No mass or malignant process is seen. Suspect sequela of chronic thyroiditis. 2. Benign adenoma of the right lobe of the thyroid gland. 3. TR2: 2 points = not suspicious 3. If physical symptoms, abnormal thyroid values or other findings warrant further radiologic assessment repeat the study and consider nuclear medicine iodine 123 or PET/CT if there is concern for malignancy. 4. Targeted image guided biopsy of nodules of interest can also be performed with definitive pathologic assessment and diagnosis. ACR Thyroid Imaging Reporting and Data System (ACR TI-RADS) Reference: COMPOSITION (choose 1): Cystic or almost completely cystic - 0 points Spongiform- 0 points Mixed cystic and solid - 1 point Solid almost completely solid - 2 points ECHOGENICITY (choose 1): Anechoic space - 0 points Hyperechoic or isoechoic-1 point Hypoechoic-2 points Very hypoechoic-3 points SHAPE (choose 1): : Wider than tall-0 points Taller than wide-3 points MARGINS ( smooth, lobular, ill-defined) ECHOGENIC FOCI (macro or microcalcifications) Scoring and classification TR1: 0 points = benign TR2: 2 points = not suspicious TR3: 3 points = mildly suspicious TR4: 4-6 points = moderately suspicious TR5: ?7 points = highly suspicious Recommendations TR1: no FNA required TR2: no FNA required TR3: ?1.5 cm follow up, ?2.5 cm FNA = follow up: 1, 3 and 5 years TR4: ?1.0 cm follow up, ?1.5 cm FNA = follow up: 1, 2, 3 and 5 years TR5: ?0.5 cm follow up, ?1.0 cm FNA = annual follow up for up to 5 years FNA biopsy is recommended for suspicious lesions (TR3-TR5) with the above size criteria. If there are multiple nodules, the two with the highest ACR TI-RADS scores should be sampled (rather than the two largest), with largest size being used a tie-breaker if there are multiple nodules of the same classification. Electronically Signed: Alex Reddy MD at 15:32 EST ,
== END | disposition home or self-care (01) ==
LOC: US 12:50
PROVIDERS: PCP Internal Medicine; Referring Provider Internal Medicine; Visit Provider Internal Medicine
DX: E04.1 Nontoxic single thyroid nodule (principal)
CPT/HCPCS: 76536

== ENCOUNTER → 2024-07-16 | Outpatient (CLI) | payer OTHER, SELFPAY ==
--- NOTE | 2024-07-16 10:29 | BI_ITS ---
MAMMOGRAPHY - BILATERAL SCREENING REASON FOR EXAM: Female, 58 years old. Routine annual screening examination. PERTINENT HISTORY: Aunt with breast cancer. TECHNIQUE: Digital bilateral breast su (3D mammographic acquisition) in the CC and MLO projections. 2-D mediolateral oblique (MLO) and craniocaudad (CC) views of both breasts were obtained. CAD: Full Field Digital Mammography with Computer Added Detection was performed. COMPARISON: Comparison is made with prior study May 05, 2022 and November 13, 2018. FINDINGS: Breast Composition: The breasts are extremely dense, which lowers the sensitivity of mammography. There are no dominant masses or suspicious calcifications. No other significant abnormalities are identified. There has been no significant change since the prior study. BI/SCRN MAMM (CAD)W/SU BILAT IMPRESSION: Stable bilateral screening mammogram. Yearly follow-up mammogram recommended. (A) ASSESSMENT CATEGORY: BIRADS Category 1: Negative. A letter regarding these results will be sent to the patient by the facility within 30 days. Approximately 10% of breast cancers are not detected by mammography. A normal mammogram should not delay biopsy of a clinically suspicious abnormality. [id number] Electronically Signed: Kota Montgomery MD at 10:58 EST ,
--- NOTE | 2024-07-16 10:44 | BD_ITS ---
STUDY: DUAL ENERGY X-RAY ABSORPTIOMETRY / DXA REASON FOR EXAM: Female, 58 years old. 627.8Menopausal postmenopausal BONE DENSITY REASON FOR EXAM -- Postmenopausal status TECHNIQUE: Bone Mineral Density (BMD) measurements of lumbar spine and bilateral hips were obtained. COMPARISON: Comparison is made with prior study May 05, 2022. FINDINGS: Lumbar Spine (L1-L4): g/cm2 (0.789) / T-score (-2.4) / Z-score (-0.9) Findings are suggestive of osteopenia with a high fracture risk. Left Femur Total: g/cm2 (0.786) / T-score (-1.3) / Z-score (by 0.3) Left Femoral Neck: g/cm2 (0.640) / T-score (-1.9) / Z-score (-0.6) Right Femur Total: g/cm2 (0.706) / T-score (-1.9) / Z-score (-1.0) Right Femoral Neck: g/cm2 (0.559) / T-score (-2.6) / Z-score (-1.3) The T-Scores on the most recent prior examination were: Lumbar Spine (L1-L4): There has been improvement of bone density since the previous examination. Left Femur Total: which represents an improvement of 4.1%. Right Femur Total: which represents an improvement of 2.6%. BD/Dexa Bone Density Study IMPRESSION: The patient is considered osteoporotic as outlined below according to World [employer] Organization (WHO) criteria with a high fracture risk. There has been improvement of bone density since the previous examination. Reference Information: The T-score is the number of standard deviations above or below the standard which is normal for young adults at their peak bone mineral density. The World Health Organization (WHO) interprets the T-scores as follows: Above -1 Normal bone density Between -1 and -2.5 Osteopenia Equal to / or below -2.5 Osteoporosis As a practical clinical guideline, osteopenia may be graded as follows: Mild -1 through -1.5 Moderate -1.6 through -2.0 Severe -2.1 through -2.4 The Z-score is the number of standard deviations above or below age-matched controls. A Z-score of less than -1.5 would be considered abnormal. References: 1. NIH Osteoporosis and Related Bone Diseases www osteo.org 2. International Society for Clinical Densitometry www iscd.org 3. National Osteoporosis Foundation www nof.org Electronically Signed: Kota Montgomery MD at 14:10 EST ,
== END | disposition home or self-care (01) ==
LOC: OPBD 10:28
PROVIDERS: PCP Internal Medicine; Referring Provider Internal Medicine; Visit Provider Internal Medicine
DX: Z12.31 Encounter for screening mammogram for malignant neoplasm of breast (principal); Z78.0 Asymptomatic menopausal state
CPT/HCPCS: 77063; 77067; 77080

== ENCOUNTER → 2024-12-18 | Outpatient (CLI) | payer OTHER, SELFPAY ==
[2024-12-18 10:11] LABS: Cholesterol 194 mg/dL (<=200); High Density Lipoprotein 74 mg/dL; Low Density Lipoprotein Calc. 107 mg/dL; Triglycerides 61 mg/dL; Very Low Density Lipoprotein 12 mg/dL (5-40); cholesterol:hdl ratio screen 2.61
== END | disposition home or self-care (01) ==
LOC: LAB 07:53
PROVIDERS: PCP Internal Medicine; Referring Provider Internal Medicine; Visit Provider Internal Medicine
DX: R79.89 Other specified abnormal findings of blood chemistry (principal); E55.9 Vitamin D deficiency, unspecified; Z13.220 Encounter for screening for lipoid disorders
CPT/HCPCS: 36415; 80061; 82306; 84443